=== PATIENT | female | born 1960 | race Caucasian/White ===

== ENCOUNTER 2022-09-12 06:00 | Emergency (ER) | payer OTHER, SELFPAY ==
[2022-09-12 06:10] VITALS: BP 138/101; PULSE 89; RESP 18; O2SAT 98; BMI 25.7
[2022-09-12 06:17] VITALS: TEMP 37.1
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
[2022-09-12] MEDS: IPRAT-ALBUT 0.5-2.5 MG/3 ML NEB 1 NEB IH ×2 (06:24→06:45)
[2022-09-12 07:21] VITALS: BP 115/74; PULSE 94; RESP 16; TEMP 36.5; O2SAT 98
--- NOTE | 2022-09-12 07:22 | ED.NURSE ---
Patient was discharged. No PIV present. Saturations 98% on room air. Feels like the back right throat is burning but able to tolerate ice chips. Encouraged patient to use lozenges at home. All questions answered and left via ambulatory.
== END 2022-09-12 07:15 | disposition home or self-care (01) ==
LOC: ED 06:45
PROVIDERS: Emergency Provider Family Medicine; PCP Physician Assistant Medical
DX: J68.3 Other acute and subacute respiratory conditions due to chemicals, gases, fumes and vapors (principal)
CPT/HCPCS: 94640; 99282; 99283

== ENCOUNTER 2025-04-02 10:58 | Emergency (ER) | payer OTHER, SELFPAY ==
[2025-04-02] VITALS (18 sets, daily range): BP systolic 142–152; BP diastolic 83–89; PULSE 51–78; RESP 12–22; TEMP 36.6; O2SAT 93–99; BMI 28.7
--- OUTSIDE RECORDS SUMMARY | 2025-04-02 11:00 | XMS_ITS | Clinical Summary ---
Author Organization [facility] Address [address] [place] [address] Care Team Providers Care Staff Cytotechnologist Name Role Phone Elsewhere, Pcp Primary Care Provider Unavailabl e Source Comments Patient records contain information from all sites at [facility]. For routine questions regarding patient records, call [phone] during business hours, M-F 8:00 AM - 5:00 PM Central Time. Record requests for emergency care only can be directed to [phone] at any time.[facility] Allergies Active Allergy Reactions Criticality Noted Date Comments Cetirizine Other (see comments) Medium 04/19/2010 Sleepiness. Ciprofloxacin Headache,Other (see comments) chills Medications * This document contains information received from the source organization and may not represent a complete record from that organization. albuterol 90 mcg/actuation inhaler Inhale 2 puffs as needed for shortness of breath. 2 Active UNABLE TO FIND Take 1 each by mouth 2 (two) times a day. Med Name: Plexus program Active cholecalcifero l (Vitamin D3) 250 mcg (10,000 Unit) capsule Take 250 mcg by mouth daily. Active zinc sulfate (ZINC-15 ORAL) Take 15 mg by mouth daily. Active quercetin 500 mg capsule Take 1 tablet by mouth daily. Active psyllium husk (METAMUCIL ORAL) Take 5 tablets by mouth daily. Active acetaminophen (TylenoL) 500 mg tablet Take 2 tablets (1,000 mg total) by mouth every 6 (six) hours as needed for pain. Alternate with ibuprofen every 3 hours. Do not exceed 4000 mg or 4 g in 24 hours. Active ibuprofen 200 mg tablet Take 3 tablets (600 mg total) by mouth every 6 (six) hours as needed for pain. Alternate with acetaminophen every 3 hours. Active oxyCODONE (Roxicodone) 5 mg immediate release tabletIndicati ons:Acute Pain Take 1 tablet (5 mg total) by mouth every 6 (six) hours as needed for pain Indication: Acute Pain. Not relieved by over the counter pain medications. 10 tablet 11/17/2024 6:19 PM CDT Active sennosides-doc usate sodium (Senokot-S) 8.6-50 mg per tablet Take 1 tablet by mouth 2 (two) times a day as needed for constipation. While on narcotics. Active Active Problems Problem Noted Date Diagnosed Date Bleeding Postmenopausal 10/14/2024 Leiomyoma (Fibroid) Uterus 10/14/2024 Social History Tobacco Use Types Packs/Day Years Used Date Smoking Tobacco: Former Cigarettes Q uit: 1993 Passive Smoke Exposure: Never Smokeless Tobacco: Never Tobacco Cessation:Counseling Given: Not Answered Alcohol Use Standard Drinks/Week Comments Not Currently 0 (1 standard drink = 0.6 oz pure alcohol) Use to drink socially, now its a rare thing [facility] Utilities Answer Date Recorded In the past 12 months has [place], oil, or water [place] threatened to shut off services in your home? No 10/18/2024 Hunger Vital Sign Answer Date Recorded Within the past 12 months, y ou worried that your food would run out before you got the money to buy more. Never true 10/19/19 25 Within the past 12 months, t he food you bought just didn't last and you didn't have money to get more. Never true 10/18/2024 PRAPARE - Transportation Answer Date Re corded In the past 12 months, has l ack of transportation kept you from medical appointments or from getting medications? No 10/08 In the past 12 months, has l ack of transportation kept you from meetings, work, or from getting things needed for daily living? No 10/18/2024 Housing Stability Answer Date Recorded What is your living situation today? I have a [facility] place to live 10/18/2024 Comments No Sex and Gender Information Value Date Recorded Sex Assigned at Female 10/18/2024 8:23 AM CDT Legal Sex Female 5:07 PM [employer]MSTONE [employer]TER Gender Identity Female 09/22/2024 2:05 PM [employer]MSTONE [employer]TER Sexual Orientation Straight 09/22/2024 2: 05 PM [employer]MSTONE [employer]TER Last Filed Vital Signs Vital Sign Reading Time Taken Comments Blood Pressure 120/60 11/17/2024 7:00 PM CDT Pulse 89 11/17/2024 7:00 PM CDT Temperature 36.5 C (97.7 F) 11/17/2024 6:00 PM CDT Respiratory Rate 16 11/17/2024 7:00 PM CDT Oxygen Saturation 94% 11/17/2024 7:00 PM CDT Inhaled Oxygen Concentration - - Weight 69 kg (152 lb 1.9 oz) 11/17/2024 11:13 AM CDT Height 156 cm (5' 1.42) 11/17/2024 11:13 AM CDT Body Mass Index 28.35 11/17/2024 11:13 AM CDT Plan of Treatment Health Maintenance Due Date Last Done Comments CT Colonography 1962 Cologuard 1962 Colonoscopy 1962 Colorectal Cancer Screening 1962 FIT 1962 Hepatitis C Screening 1962 Pneumococcal vaccine (50+ years) (1 of 1 - PCV) 2012 COVID-19 Vaccine ( season) 2024 Depression Screening (Annual PHQ-2) 08/10/2024 Influenza Vaccine (#1) 2025 5, 04/12/2015, 04/15/2013, Additional history exists Mammogram 05/10/2025 05/10/2024, 1008/2023, 03/16/2023, Additional history exists Fasting Glucose for Diabetes Screening 10/25/2027 10/24/2024, 03/25/2023, 04/05/2022, Additional history exists Lipid (Cholesterol) Screening 03/25/2028 03/25/2023, 12/23/2021, 11/19/2020, Additional history exists DTaP,Tdap,and Td Vaccines (8 - Td or Tdap) 05/30/2034 05/30/2024, 07/22/2012, 01/20/1968, Additional history exists Zoster Vaccines Completed 02/07/2021, 11/19/2020 IPV Vaccines Aged Out No longer eligi ble based on patient's age to complete this topic Medical Devices Implanted Type Area Medical Instrument Cable Fabricator Device Identifier Shelf Expiration Date Model / Serial / Lot Sacral Nerve Stimulator Sacral Nerve Stimulator Left: Back Procedures Procedure Name Priority Date/Time Associated Diagnosis Comments BASIC METABOLIC PANEL, S/P Routine 10/24/2024 4:35 PM CDT Bleeding Postmenopausal Leiomyoma (Fibroid) Uterus Preprocedural Lab Exam from Last 3 Months or Most Recently Relevant to Health Maintenance Results * (ABNORMAL) Basic Metabolic Panel (10/24/2024 4:35 PM CDT) Pathologist [facility] [place] Potassium, S 5.0 3.6 - 5.2 mmol/L 10/24/2024 6:23 PM CDT DTL Sodium, S 141 135 - 145 mmol/L 10/24/2024 6:23 PM CDT DTL Chloride, S 103 98 - 107 mmol/L 10/24/2024 6:23 PM CDT DTL Bicarbonate, S 28 22 - 29 mmol/L 10/24/2024 6:23 PM CDT DTL Anion Gap 10 7 - 15 10/24/2024 6:23 PM CDT DTL BUN (Blood Urea Nitrogen), S 22(H) 6 - 21 mg/dL 10/24/2024 6:23 PM CDT DTL Creatinine 0.82 0.59 - 1.04 mg/dL 10/24/2024 6:23 PM CDT DTL Estimated GFR (eGFR) 81 >=60 mL/min/BSA 10/24/2024 6:23 PM CDT DTL Comment: Estimated GFR calculated using the 2020 CKD_EPI creatinine equation. Calcium, Total, S 9.4 8.8 - 10.2 mg/dL 10/24/2024 6:23 PM CDT DTL Glucose, S 113 70 - 140 mg/dL 10/24/2024 6:23 PM CDT DTL Blood (Blood, Venous) 10/24/2024 4:35 PM CDT 10/24/2024 5:11 PM CDT us Crystal Shanks M.D. LAB BLOOD ADD-ON Final Re sult [facility] [address] [place] [address], [place] DTL [facility] [address] [place] [address] from Last 3 Months or Most Recently Relevant to Health Maintenance Insurance [employer] Advance Directives For more information, please contact: [phone] * Full Code (Latest Code Status on File) Date Activated Date Inactivated Comments 11/17/2024 6:06 PM 11/17/2024 11:13 PM Question Answer Comments Full Code: Discussed * Full Code Date Activated Date Inactivated Comments 11/17/2024 11:09 AM 11/17/2024 6:06 PM Question Answer Comments Full Code: Discussed Care Teams Staff Cytotechnologist Relationship Specialty Start Date End Date Elsewhere, Pcp PCP - General Health Education Teacher 09/27/24
--- OUTSIDE RECORDS SUMMARY | 2025-04-02 11:00 | XMS_ITS | Clinical Summary ---
Author Organization [facility] Address [address] [place] [id number] Care Team Providers Care Metal Temperer Name Role Phone Stacie Turner Primary Care Provider Allergies Active Allergy Reactions Criticality Noted Date Comments Cetirizine Sedation Medium 04/19/2010 Sleepiness. Ciprofloxacin Headache,Stomach Upset 09/01/2014 chills Medications acetaminophen (TYLENOL) 325 mg tabletIndicati ons:Post-op pain Take 3 Tablets (975 mg) by mouth every 6 hours. Max acetaminophen dose: 4000mg in 24 hrs. 100 Tablet 1 Active albuterol HFA (ProAir HFA) 90 mcg/actuation inhalerIndicat ions:Acute non-recurrent frontal sinusitis Inhale 1-2 Puffs by mouth every 6 hours if needed (cough). 1 Each 1 2 Active albuterol HFA (PRO-AIR; VENTOLIN; PROVENTIL) 90 mcg/actuation inhalerIndicat ions:Influenza A,Acute bronchitis due to other specified organisms Inhale 1-2 Puffs by mouth every 4 hours if needed for Shortness of Breath 1st choice or Wheezing 1st choice. 18 g 1 3 Active estradioL (VAGIFEM) 10 mcg tab vaginal tabletIndicati ons:Atrophic vaginitis INSERT 1 TABLET INTO VAGINA EVERY THURSDAY & THURSDAY 24 Tablet 1 4 Active Active Problems Problem Noted Date Diagnosed Date COVID-19 09/12/2022 OAB (overactive bladder) 12/17/2020 Mixed incontinence 12/17/2020 COVID-19 08/10/2019 Chronic fatigue 05/25/2018 Low vitamin D level 05/25/2018 Family history of thyroid disease 05/25/2018 Elevated fasting glucose 05/25/2018 Anxiety associated with depression 11/22/2013 Contact dermatitis and other eczema, due to unspecified cause 03/09/2012 Actinic cheilitis 07/04/2009 Family history of malignant neoplasm of gastrointestinal tract 04/06/2009 Overview (04/06/2009): Colonoscopy 03/2009 normal repeat in 5 years Pap smear for cervical cancer screening 08/10/19 03 Overview (03/10/2022): 2002 [place]IL 07/2003 [place] 10/2003 [place]:negative 10/10/19 NIL 12/23/21 NIL/HPV Negative Plan: Pap and HPV 12/2026 Immunizations Immunization Administration Dates Next Due AMB Influenza, IIV3 (Age >=3 years)(Flu Clinic Only) 05/30/2010 DTP 01/20/1968, 4,1962,1962,1962 Hepatitis A (Adult) 05/22/2008,11/04/2007 Influenza, IIV3 (Age 6-35 mos) 04/12/2015 Influenza, IIV3 (Age >=3 years) 04/15/20 13,07/22/2012,05/22/2008,2006 Influenza, IIV4 05/10/2015 Measles 11/05/1976,11/06/1964 Oral Polio Vaccine 01/20/1968, 4,1962,1962,1962 Td (Age >=7 Years) 06/17/2002,03/03/1983 Tdap 05/30/2024,07/22/2012 Zoster (Shingrix-RZV, recombinant) 02/07/2021, Family History Medical History Relation Name Comments Hypertension Brother 3 Ed Allergies Brother 4 Pardeep Diabetes Father Jon Heart Disease Father Jon h/o [place] at age 69 Hyperlipidemia Father Jon Hypertension Father Jon Cancer Mother Aileen uterine cancer; her sister also had it Diabetes Mother Aileen abnormal glucos e Hyperlipidemia Mother Aileen Hypertension Mother Aileen Cancer-breast Paternal Aunt Diana Cancer Sister 5 Collette rectal cancer a t age 47 Cancer-colon Sister 5 Collette Cancer-ovarian Sister 5 Collette Uterine cancer Sister 5 Collette Cancer Sister 6 Yu skin cancer Diabetes Sister 7 Ernestine Hypertension Sister 7 Ernestine Depression Sister 8 Shante and Collette Hypertension Sister 8 Shante and Colltete Allergies Sister 9 Shante, ernestine Relation Name Status Comments Brother 1 Alive Brother 2 Alive Brother 3 Ed Brother 4 Pardeep Father Jon Alive Mother Aileen Paternal Aunt Diana Sister 1 Alive Sister 2 Alive Sister 3 Alive Sister 4 Alive Sister 5 Collette Sister 6 Yu Sister 7 Ernestine Sister 8 Shante and Collette Sister 9 Shante, ernestine Alive Social History Tobacco Use Types Packs/Day Years Used Date Smoking Tobacco: Former Cigarettes Q uit: 08/10/1993 Smokeless Tobacco: Never Tobacco Cessation:Counseling Given: Yes Alcohol Use Standard Drinks/Week Comments Yes 0 (1 standard drink = 0.6 oz pure alcohol) occassional; couple drinks per month. PHQ-2 Answer Date Recorded PHQ-2 TOTAL SCORE 4 03/25/2023 Social Connections Answer Date Recorded Do you often feel lonely or isolated from those around you? 0 07/27/2024 Financial Resource Strain Answer Date R ecorded Difficulty of Paying Living Expenses 3 07/27/2024 Difficulty of Paying Living Expenses Not on file 07/27/2024 Food Insecurity Answer Date Recorded Do you worry your food will run out before you are able to buy more? 1 07/27/2024 Transportation Needs Answer Date Record ed Does lack of transportation keep you from medica l appointments? 1 07/27/2024 Does lack of transportation keep you from work, meetings or getting things that you need? 1 07/27/2024 Housing Stability Answer Date Recorded What is your housing situation today? 1 07/27/2024 Utilities Answer Date Recorded Do you have trouble paying f or utilities (for example, heat, electricity, water, phone)? 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 Not on file Not on file Not on f ile Student Not on file Not on file Not on file Not on file Not on file Not on file Not on file Obstetrics History Para Term AB IAB SAB Ectopic Multiple Livin g Live Births 2 2 2 2 Date Outcome GA Total Labor Labor/2nd/3rd Weight Sex Type Anes PTL Casandra A1 A5 Name Clin Term Vag Term VAGINAL HELIO Last Filed Vital Signs Vital Sign Reading Time Taken Comments Blood Pressure 115/70 12/02/2024 8:55 AM CDT Pulse 67 12/02/2024 8:55 AM CDT Temperature 36.5 C (97.7 F) 07/27/2024 11:30 AM CASTING AND CURING OPERATOR Respiratory Rate 16 12/19/2022 12:56 PM CDT Oxygen Saturation 99% 12/02/2024 8:55 AM CDT Inhaled Oxygen Concentration - - Weight 71.4 kg (157 lb 6.4 oz) 08/04/2024 7:32 A M CASTING AND CURING OPERATOR Height 154.9 cm (5' 1) 05/30/2024 1:27 PM CDT Body Mass Index 29.74 05/30/2024 1:27 PM CDT Plan of Treatment Health Maintenance Due Date Last Done Comments Pneumococcal series for age 50+ (1 of 1 - PCV) 2012 Depression screening for age 12+ 03/25/2024 03/25/2023, 06/07/2021, 06/07/2021, Additional history exists COVID-19 vaccine series ( - season) 2024 Influenza Vaccine (#1) 2025 5, 04/12/2015, 04/15/2013, Additional history exists Mammogram for age 45-75 05/10/2025 05/10/20 24, 03/16/2023, 12/20/2021, Additional history exists BMI (ht and wt on same day) for age 18+ 05/30/2025 05/30/2024, 03/25/2023, 12/19/2022, Additional history exists CT Colonography for age 45-75 04/08/2026 04/08/2021 (Verified in Care Everywhere or Patient Record) Pap test for age 21-65 12/23/2026 , 12/23/2021, 10/10/2019, Additional history exists Lipids for age 45-75 05/30/2029 05/30/2024, 03/25/2023, 12/23/2021, Additional history exists Tetanus booster 05/30/2034 05/30/2024, 07/10, 07/22/2012, Additional history exists RSV vaccine for adults or (1 - 1-dose 75+ series) 2037 Hepatitis C screening for age 18-79 Completed 07/22/2013 Zoster (shingles) series for age 50+ Completed 02/07/2021, 11/19/2020 HIV for age 15-65 Completed 06/05/2021 Hepatitis B series for 19+ Aged Out N o longer eligible based on patient's age to complete this topic Medical Devices Implanted Type Area Plumbing Manager Device Identifier Shelf Expiration Date Model / Serial / Lot Cable Perk Ext 2.16mm Interstim Lead - [id number] Implanted:Qty: 1 on 06/11/2021 by Candi Pepper DO at [facility] N/A: Sacrum [employer] Pain Therapy 08/12/2022 [id number] / / [id number] Lead Kit 2.16mm Spacing 28cm Length Interstim - [id number] Implanted:Qty: 1 on 06/11/2021 by Candi Pepper DO at [facility] N/A: Sacrum [employer] Pain Therapy 07/19/2022 [id number] / / [id number] Neurostimulator Rechargable Interstim Micro Surescan - [id number] Implanted:Qty: 1 on 06/18/2021 by Candi Pepper DO at [facility] Left: Flank [employer] Pain Therapy 01/04/2022 [id number] / [id number] / Procedures Procedure Name Priority Date/Time Associated Diagnosis Comments LIPID PANEL W REFLEX MEASURED LDL Routine 05/30/2024 2:19 PM CDT Screening cholesterol level XR MAMMO ELOY BILAT SCREEN Routine 05/10/2024 1:21 PM CDT Visit for screening mammogram HPV HIGH RISK Routine 12/23/2021 2:30 PM CDT Screening for cervical cancer ANTI HIV 1/2 Routine 06/05/2021 4:51 PM CDT Mild cognitive impairment ANTI HCV Routine 07/22/2013 8:05 AM CASTING AND CURING OPERATOR Need for hepatitis C screening test from Last 3 Months or Most Recently Relevant to Health Maintenance Results * (ABNORMAL) LIPID PANEL W REFLEX MEASURED LDL (05/30/2024 2:19 PM CDT) CHOLESTEROL, TOTAL 194 <200 mg/dL [facility] HDL CHOLESTEROL 50 > OR = 50 mg/dL [facility] TRIGLYCERIDES 92 <150 mg/dL [facility] LDL-CHOLESTEROL 124(H) mg/dL (calc) [facility] Comment: Reference range: <100 Desirable range <100 mg/dL for primary prevention; <70 mg/dL for patients with CHD or diabetic patients with > or = 2 CHD risk factors. LDL-C is now calculated using the Orlando-Ginette calculation, which is a validated novel method providing better accuracy than the Friedewald equation in the estimation of LDL-C. Orlando SS et al. HARRIS. 2013;310(19): 1548-5703 (http://education.[employer]er[employer]/faq/TFK634) CHOL/HDLC RATIO 3.9 <5.0 (calc) [facility] NON HDL CHOLESTEROL 144(H) <130 mg/dL (calc) [facility] Comment: For patients with diabetes plus 1 major ASCVD risk factor, treating to a non-HDL-C goal of <100 mg/dL (LDL-C of <70 mg/dL) is considered a therapeutic option. Blood BLOOD SPECIMEN / Unknown 05/30/2024 2:19 PM CDT 05/30/2024 2:20 PM CDT Narrative [facility] - 05/31/2024 11:30 AM CDT FASTING:NO FASTING: NO Stacie SHAFFER CHEMISTRY Final R esult [facility] [address] [place] [address], [facility] [address] [place] [address] * XR MAMMO ELOY BILAT SCREEN (05/10/2024 1:21 PM CDT) Anatomical Region Laterality Modality BREASTS, Breast Left, Breast Right Bilateral Mammography Impressions 05/10/2024 2:10 PM CDT There is no radiographic evidence for malignancy. Recommend annual mammograms. MAMMOGRAM ASSESSMENT: ACR 1 Negative PATIENTS: You will also receive a letter with your examination results in an easy to read format. If you have questions about your results, please contact your referring provider. Narrative 05/10/2024 2:10 PM CDT For Patients: As a result of the Century Cures Act, medical imaging exams and procedure reports are released immediately into your electronic medical record. You may view this report before your referring provider. If you have questions, please contact your health care provider. XR MAMMO ELOY BILAT SCREEN [[id number]] CLINICAL HISTORY: This is an asymptomatic 63 y.o. patient. INDICATION FOR EXAM: Mammogram Screening. TECHNIQUE: CC & MLO views were obtained. This study was evaluated with the assistance of Computer-Aided Detection. Breast Tomosynthesis was used in interpretation. COMPARISON FILM: Yes 03/16/23 [facility] 12/20/21 [facility] FINDINGS: There are scattered areas of fibroglandular density. There are no dominant masses, suspicious micro calcifications or areas of architectural distortion. Stacie SHAFFER MAMMO Final R esult * HPV HIGH RISK (12/23/2021 2:30 PM CDT) TYPE 16 Negative Negative 12/25/2021 11:31 AM CDT [facility] TYPE 18 Negative Negative 12/25/2021 11:31 AM CDT [facility] OTHER HIGH RISK TYPES Negative Negative 12/25/2021 11:31 AM CDT [facility] Other (Cervical) Non-Blood / Unknown 12/23/2021 2:30 PM CDT 12/24/2021 7:55 AM CDT Narrative [facility] - 12/25/2021 11:31 AM CDT HPV types 16, 18, 31, 33, 35, 39, 45, 51, 52, 56, 58, 59, 66 and 68 DNA were undetectable or below the pre-set threshold. Methodology: Matthew Raman 4800 HPV Test us Stacie SHAFFER MICROBIOLOGY Final R esult Performing Organization Address City/[facility]/ZIP Co de Phone Number [facility] [address] [place] [address], [place] * ANTI HIV 1/2 [34861.0] (06/05/2021 4:51 PM CDT) HIV-1/HIV-2 ANTIBODY Non-Reacti ve Non-Reacti ve 06/06/2021 2:36 PM CDT [facility] Comment:HIV-1 p24 and HIV-1/ HIV-2 Ab not detected. Blood BLOOD SPECIMEN / Unknown Venipuncture / Unknown 06/05/2021 4:51 PM CDT 06/05/2021 4:51 PM CDT Jean Carlos Sandoval MD SEND OUTS Final Re sult [facility] [address] [place] [address], [place] * ANTI HCV (07/22/2013 8:05 AM CASTING AND CURING OPERATOR) ANTI HCV Non-reacti ve [facility] Blood specimen (specimen) BLOOD SPECIMEN / Unknown 07/22/2013 8:05 AM CASTING AND CURING OPERATOR 07/22/2013 7:59 AM CASTING AND CURING OPERATOR Raji Floyd MD SEND OUTS Final Re sult [facility] INTERNAL ZIP [phone] [place] [address] from Last 3 Months or Most Recently Relevant to Health Maintenance Insurance [facility] NON-KS-ITS TRAVELERS TRAVELERS TRAVELERS TRAVELERS Advance Directives * Full Code (Latest Code Status on File) Date Activated Date Inactivated Comments 06/18/2021 12:05 PM 06/18/2021 5:44 PM Question Answer Comments Code Status Discussion: Reviewed Preferences * Full Code Date Activated Date Inactivated Comments 06/11/2021 12:47 PM 06/11/2021 6:47 PM Question Answer Comments Code Status Discussion: Not Discussed Care Teams Metal Temperer Relationship Specialty Start Date End Date Stacie Turner PA [address] [place] [address] PCP - General Physician Land Development Project Manager 10/08/18
--- NOTE | 2025-04-02 11:19 | ED_ITS ---
HPI - General Adult General Date Seen: 04/02/25 Chief complaint: Chest Pain Stated complaint: chest pain Time Seen by Provider: 04/02/25 11:04 History of Present Illness HPI narrative: Patient is a 64-year-old here with her for evaluation of chest pain. S he is generally healthy, does not take any medications, does not smoke or drink. She had 2 episodes of sharp pleuritic chest pain in the center of her chest this morning. She says she got up around 6 and had breakfast which was opened male, and then around 9:00 a.m. she had 1 episode followed a little while later by another episode, both lasting around 5 minutes. She has had some nausea all week and a little bit of lightheadedness which she attributes to the fact that she has been suffering from a cold. She has not had any fevers. She has not had abdominal pain. She has not had vomiting or diarrhea, black or bloody stools. No recent travel or immobility, no lower extremity swelling or pain. Currently pain-free. Related Data Home Medications ?Medication ?Instructions ?Recorded ?Confirmed No Known Home Medications 08/16/2403/10 Allergies Allergy/AdvReac Type Severity Reaction Status Date / Time ciprofloxacin Allergy Gastrointestinal Verified 03/21/25 13:52 Upset cetirizine AdvReac sedation Verified 03/21/25 13:52 Review of Systems Status of ROS: Reports: 10 or more systems reviewed and unremarkable except as noted in History and below [facility] Medical History MERLY (obstructive sleep apnea) ?G47.33 - Obstructive sleep apnea (adult) (pediatric) (ICD-10) OAB (overactive bladder) ?N32.81 - Overactive bladder (ICD-10) Low vitamin D level ?R79.89 - Other specified abnormal findings of blood chemistry (ICD-10) IBS (irritable bowel syndrome) ?K58.9 - Irritable bowel syndrome, unspecified (ICD-10) Contact dermatitis ?L25.9 - Unspecified contact dermatitis, unspecified cause (ICD-10) Anxiety ?F41.9 - Anxiety disorder, unspecified (ICD-10) Actinic cheilitis ?L56.8 - Other specified acute skin changes due to ultraviolet radiation (ICD-10) Surgical History History of hysterectomy (11/17/24) ?Z90.710 - Acquired absence of both cervix and uterus (ICD-10) S/P abdominoplasty ?Z98.890 - Other specified postprocedural states (ICD-10) History of arthroscopy of right shoulder (11/14/98) ?Z98.890 - Other specified postprocedural states (ICD-10) S/P foot surgery, left (04/18/92) ?Z98.890 - Other specified postprocedural states (ICD-10) History of tonsillectomy ?Z90.89 - Acquired absence of other organs (ICD-10) Family History Mother Diabetes Father Diabetes Sister Diabetes Uterine cancer Rectal cancer Skin cancer Social History Narrative: former smoker-1993 Smoking Status: Former smoker What tobacco products do you use: cigarettes Smoking quit date/years: >15 years ago Do you use any of these nicotine containing products: None Second hand tobacco smoke exposure: No Exam Narrative: Exam Narrative: Vital signs reviewed In general, alert, nontoxic but H woman. Breathing easily. Head: Normocephalic, atraumatic. Eyes: Sclera clear. Pupils equal and reactive. ENT: Mucous membranes moist. Neck: Supple without adenopathy. Heart: Regular rate and rhythm without murmur. Lungs: Clear. No increased work of breathing, crackles or wheezes. Abdomen: Soft, nontender to palpation. Specifically no epigastric or right upper quadrant tenderness. Negative Evans's. Extremities: Well perfused, pulses intact. No significant edema. No calf tenderness. Neurologic: Alert, conversant. Speech fluent, face symmetric. Moves all extremities equally. Skin: Warm, dry well perfused. Affect: Normal. Const: Vital Signs, click to edit/add: Vital Signs - 24 hr 04/02/25 11:04 04/02/25 11:18 Temperature 97.8 F Pulse Rate [Pulse Oximeter] 78 Respiratory Rate 18 Blood Pressure [Ri ght Upper Arm] 142/89 H Pulse Oximetry 98 99 Oxygen Delivery Me thod Room Air Course Course ED Course: Patient presents with 2 episodes of sharp pleuritic chest pain in the presence of cold symptoms for the past week. Diagnostic considerations would include pneumonia, pneumothorax, pleural effusion, acute coronary syndrome or angina, pulmonary embolism, biliary colic among others. She is pain-free right now. An EKG was done which shows a normal sinus rhythm, ventricular rate of 61. No acute ST segment changes, unremarkable T-waves, poor R-wave progression. No previous EKG available for comparison. Overall workup so far is reassuring. EKG is unremarkable for anything acute, troponin is 0, D-dimer is negative. Chest x-ray by my review shows no pneumothorax, infiltrate, pleural effusion or other abnormalities. Read as negative by Radiology. Due to her age will get a 2nd troponin at the 2 hour marco, but overall I would suspect her symptoms are related to pleurisy in the setting of an upper respiratory infection. Biliary colic felt to be less likely given the pleuritic nature and brief duration of her pain. COVID test is still pending at this time. Assuming 2nd troponin is negative, would recommend a couple of days of anti-inflammatories, return for severe worsening symptoms such as fever, significant shortness of breath, severe uncontrolled pain, and primary care follow-up if symptoms continue. COVID and repeat troponin negative. Plan as outlined above. Vital Signs Vital signs: Initial Vital Signs Temperature 97.8 F 04/02/25 11:04 Temperature Source Temporal Artery Scan 04/02/25 11:04 Pulse Rate 78 04/02/25 11:04 Respiratory Rate 18 04/02/25 11:04 Blood Pressure 142/89 H 04/02/25 11:04 Blood Pressure Mean 106 H 04/02/25 11:04 Pulse Oximetry 98 04/02/25 11:04 Oxygen Delivery Method Room Air 04/02/25 11:04 Vital Signs Temperature 97.8 F 04/02/25 11:04 Pulse Rate 78 04/02/25 11:04 Respiratory Rate 18 04/02/25 11:04 Blood Pressure 142/89 H 04/02/25 11:04 Pulse Oximetry 98 04/02/25 11:04 Oxygen Delivery Method Room Air 04/02/25 11:04 Temperature 97.8 F 04/02/25 11:04 Pulse Rate 78 04/02/25 11:04 Respiratory Rate 18 04/02/25 11:04 Blood Pressure 142/89 H 04/02/25 11:04 Pulse Oximetry 99 04/02/25 11:18 Oxygen Delivery Method Room Air 04/02/25 11:04 Medical Decision Making Lab Data Lab results reviewed: Yes I reviewed the patient's lab results Labs: Lab Results 04/02/25 04/02/25 04/02/25 Range/Units 11:19 11:30 13:40 WBC 3.00 L (4.50-11.00) K/uL RBC 5.00 (4.00-5.20) m/uL Hgb 14.1 (12.0-16.0) gm/dL Hct 42.2 (33.0-51.0) % MCV 84 (80-100) fL MCH 28 (26-34) pg MCHC 33 (32-36) gm/dL RDW Coeff of Erika 12.4 (11.5-15.5) % Plt Count 189 (140-440) K/uL Neut % (Auto) 40.4 L (42.0-72.0) % Lymph % (Auto) 44.7 H (20-44) % Toole % (Auto) 10.0 (0.0-11.0) % Eos % (Auto) 4.3 (0.0-7.0) % Baso % (Auto) 0.3 (0.0-3.0) % Neut # (Auto) 1.20 L (1.7-7.0) K/uL Lymph # (Auto) 1.30 (0.90-2.90) K/uL Toole # (Auto) 0.30 (0.00-0.90) K/UL Eos # (Auto) 0.10 (0.00-0.50) K/uL Baso # (Auto) 0.00 (0.00-0.30) K/uL Abs Immat Gran (auto) 0.00 (0.00-0.30) K/uL Imm/Tot Granulo (auto) 0.3 % D-Dimer Quant (PE/DVT) 0.35 (0.00-0.50) ug/ml Sodium 137 (135-149) mmol/L Potassium 4.1 (3.6-5.1) mmol/L Chloride 101 (96-114) mmol/L Carbon Dioxide 33 H (20-32) mmol/L Anion Gap 3 L (7-15) mEq/L BUN 19 (7-30) mg/dL Creatinine 0.6 (0.5-1.5) mg/dL Estimated Creat Clear 44.02 Estimated GFR 101 ml/min Glucose 154 H (60-115) mg/dL Calcium 9.3 (8.4-10.6) mg/dL Total Bilirubin 0.3 (0.1-1.5) mg/dL Direct Bilirubin 0.2 (0.0-0.5) mg/dL AST 32 (12-35) U/L ALT 33 (4-35) U/L Alkaline Phosphatase 93 (40-150) U/L C-Reactive Protein < 0.5 L (0.5-1.0) mg/dL Total Protein 7.1 (6.0-8.3) g/dL Albumin 4.1 (3.3-5.0) g/dL Lipase 94 (23-300) U/L SARS-CoV-2 (PCR) Negative SARS-CoV-2 (Negative) Influenza Type A (PCR) Negative PCR FLU A (Negative) Influenza Type B (PCR) Negative PCR FLU B (Negative) RSV (PCR) Negative PCR RSV (Negative) POC Troponin I 0.00 L 0.00 L (0.01-0.04) ng/ml Imaging Data Chest x-ray: Attestation: I have reviewed the pertinent imaging results. Radiologist's impression: Patient: Vaishali Brunner MR#: [id number] : 1960 Acct:[id number] Loc: ED Service Date: 04/02/[address]: Ordering Physician: Candi Moran M.D. Date of Service: 04/02/25 Procedure(s): XR chest 1V portable Accession Number(s): [id number] cc: Candi Moran M.D.; Stacie Turner PA-C~ For Patients: As a result of the Century Cures Act, medical imaging exams and procedure reports are released immediately into your electronic medical record. You may view this report before your referring provider. If you have questions, please contact your health care provider. INDICATION: Chest pain. TECHNIQUE: Chest 1 views. COMPARISON: 05/07/2021. FINDINGS: Cardiovasculature and mediastinum: Heart size is normal. Unremarkable mediastinum. Lungs and pleural spaces: Lungs are clear. No sign of infiltrate or mass. No sign of pleural effusion. No pneumothorax. Bones and soft tissues: No significant findings. IMPRESSION: Negative chest. Dictated by Mike Hartmann MD @ 04/02/2025 11:55:00 AM Discharge Plan Discharge Clinical Impression: Pleuritic chest pain, Upper respiratory infection Patient Disposition: Home, Self-Care Condition: Stable Instructions: Pleurisy (DC) Additional Instructions: Overall, your symptoms are not strongly suggestive of heart related pain. Your workup here is reassuring, there is no evidence of heart attack, pneumonia, heart failure, blood clot or other serious problem. Symptoms are most likely due to some irritation of the lining of your lungs/chest wall. It would be reasonable to use a nonsteroidal anti-inflammatory such as ibuprofen 2 to 3 times a day with food for the next couple of days. If you have new symptoms such as fevers, severe pain, fainting, shortness of breath or other worsening, return to the ER. Otherwise, follow-up with primary care for ongoing symptoms. Prescriptions: No Action No Known Home Medications Follow Up/Referrals: Stacie Turner PA-C [Primary Care Provider, Family Practice] Stand Alone Forms: [employer] Info Instructions
[2025-04-02 11:44] LABS: Troponin, Point-of-Care* 0.00 ng/ml (0.01-0.04)
[2025-04-02 11:52] LABS: Albumin* 4.1 g/dL (3.3-5.0); Chloride* 101 mmol/L (96-114); Hematocrit 42.2 % (33.0-51.0); Hemoglobin* 14.1 gm/dL (12.0-16.0); Immature Granulocytes Pct Auto 0.3 %; Mean Corpuscular HGB Conc 33 gm/dL (32-36); Mean Corpuscular Hemoglobin 28 pg (26-34); Mean Corpuscular Volume 84 fL (80-100); RDW Coefficient of Variation % 12.4 % (11.5-15.5); Red Blood Count 5.00 m/uL (4.00-5.20); White Blood Count* 3.00 K/uL (4.50-11.00)
[2025-04-02 11:53] LABS: Potassium* 4.1 mmol/L (3.6-5.1); Sodium* 137 mmol/L (135-149)
[2025-04-02 11:55] LABS: Alanine Aminotransferase* 33 U/L (4-35); Alkaline Phosphatase* 93 U/L (40-150); Anion Gap 3 mEq/L (7-15); Aspartate Amino Transferase* 32 U/L (12-35); Bilirubin Direct* 0.2 mg/dL (0.0-0.5); Bilirubin Total* 0.3 mg/dL (0.1-1.5); Blood Urea Nitrogen* 19 mg/dL (7-30); Carbon Dioxide* 33 mmol/L (20-32); Creatinine* 0.6 mg/dL (0.5-1.5); Est. Creatinine Clearance* 44.02; Estimated Glomerular Filt Rate 101 ml/min; Total Protein* 7.1 g/dL (6.0-8.3)
[2025-04-02 11:56] LABS: Calcium* 9.3 mg/dL (8.4-10.6); Glucose* 154 mg/dL (60-115)
[2025-04-02 11:59] LABS: Immature Granulocytes Abs Auto 0.00 K/uL (0.00-0.30); Lymphocytes Absolute Auto 1.30 K/uL (0.90-2.90); Slide Review Reflex No
[2025-04-02 12:02] LABS: D Dimer Quantitative* 0.35 ug/ml (0.00-0.50)
[2025-04-02 12:45] LABS: PCR FLU A Negative PCR FLU A (Negative); PCR FLU B Negative PCR FLU B (Negative); PCR RSV Negative PCR RSV (Negative); SARS PCR* Negative SARS-CoV-2 (Negative)
[2025-04-02 13:51] LABS: Troponin, Point-of-Care* 0.00 ng/ml (0.01-0.04)
== END 2025-04-02 14:10 | disposition home or self-care (01) ==
PROVIDERS: Emergency Provider Emergency Medicine; PCP Physician Assistant Medical
DX: R09.1 Pleurisy (principal); J06.9 Acute upper respiratory infection, unspecified
CPT/HCPCS: 36415; 71045; 80048; 80076; 83690; 84484; 85025; 85379; 86140; 87631; 93005; 94761; 99284; 99285

== ENCOUNTER 2025-04-12 18:59 | Emergency (ER) | payer OTHER, SELFPAY ==
--- OUTSIDE RECORDS SUMMARY | 2022-09-30 05:39 | XMS_ITS | Continuity of Care Document ---
Author Organization [facility] Address [address] [address] [place] [address] Phone Care Team Providers Care Lean Leader Name Role Phone Issac Boyer MD, Les Kiser Unavailabl e Advance Directives Directive Yes / No Effective Date File Name No Information Encounters Encounter Description Practice Location Reason(s) For Visit Diagnoses Date Provider Providers Copied on Encounter [facility], [address] [address], [place], [place], [id number], [place] tel:[phone] [facility] No Information Issac Saldana. [address] [facility], [facility] [address], [place], [place], [id number], [place]. tel:[phone] Family History Family Member Type Diagnosis Age At Onset No Information Payers Payer name Insurance type Covered constitution party ID Authoriza tion(s) No Information Social History Type Description Quantity Date Captured Comments Sex Female Smoking Status No Information Chief Complaint And Reason For Visit No Information Reason For Referral Reason For Referral No Information History Of Present Illness Encounter Date Complaint History Of Prese nt Illness No Information Functional Status Date Functional Assessmen t No Information Instructions Date Instruction Additional Infor mation No Information Assessments Type Assessment Date No Information Patient Care Teams Name Effective Dates (start - stop) Status Members No Information
--- OUTSIDE RECORDS SUMMARY | 2022-09-30 05:39 | XMS_ITS | Continuity of Care Document ---
Author Organization [facility] Address [address] [address] [place] [address] Phone Care Team Providers Care Jewel Diameter Gauger Name Role Phone Issac Boyer MD, Les Kiser Unavailabl e Advance Directives Directive Yes / No Effective Date File Name No Information Encounters Encounter Description Practice Location Reason(s) For Visit Diagnoses Date Provider Providers Copied on Encounter [facility], [address] [address], [place], [place], [id number], [place] tel:[phone] [facility] No Information Issac Saldana. [address] [facility], [facility] [address], [place], [place], [id number], [place]. tel:[phone] Family History Family Member Type Diagnosis Age At Onset No Information Payers Payer name Insurance type Covered alliance party ID Authoriza tion(s) No Information Social [...]
--- OUTSIDE RECORDS SUMMARY | 2025-04-12 19:00 | XMS_ITS | Clinical Summary ---
Author Organization [facility] Address [address] [place] [id number] Care Team Providers Care Patternmaker Hand Name Role Phone Stacie Turner Primary Care [...] & THURSDAY 24 Tablet 1 4 Active amoxicillin-cl avulanate (AUGMENTIN) 875-125 mg tabletIndicati ons:Acute non-recurrent frontal sinusitis Take 1 Tablet by mouth two times daily with meals for 5 days. 10 Tablet 5 025 Active Problems Problem Noted Date Diagnosed Date [...] 08/10/19 03 Overview (03/10/2022): 2002 LSIL 07/2003 [place] 10/2003 [place]:negative 10/10/19 NIL 12/23/21 NIL/HPV Negative Plan: Pap and HPV 12/2026 Encounters Date Type Department Care Team Description 04/04/2025 8:10 AM CDT Office Visit [facility] [address] [place] [address] Natty Castillo MD ER Follow up (Chest pain has improved /congestion and sinus symptoms are not improving ) 04/04/2025 Travel 04/02/2025 Orders Only [facility] Scanner 1 scan: (1-Ord) [facility], CHEST 1V, 04/02/2025 from Last 3 Months Immunizations Immunization Administration Dates Next Due AMB Influenza, IIV3 (Age >=3 years)(Flu Clinic Only) 05/30/2010 DTP 01/20/1968, 4,1962,1962,1962 Hepatitis A (Adult) 05/22/2008,11/04/2007 Influenza, IIV3 (Age 6-35 mos) 04/12/2015 Influenza, IIV3 (Age >=3 years) 04/15/20 13,07/22/2012,05/22/2008,2006 Influenza, IIV4 05/10/2015 Measles 11/05/1976,11/06/1964 Oral Polio Vaccine 01/20/1968,,1962,1962,1962 Td (Age >=7 Years) 06/17/2002,03/03/1983 Tdap 05/30/2024,07/22/2012 Zoster (Shingrix-RZV, recombinant) 02/07/2021, Family History Medical History Relation Name Comments Hypertension Brother 3 Ed Allergies Brother 4 Pardeep Diabetes Father Jon Heart Disease Father Jon h[facility]o [facility] at age 69 Hyperlipidemia Father Jon Hypertension [...] and Collette Hypertension Sister 8 Shante and Collette Allergies Sister 9 Shante, ernestine Relation Name [...] Sex Assigned at Female 08/29/2020 7:17 AM HAZ TECH Legal Sex Female 6:31 AM HAZ TECH Gender Identity Female 08/29/2020 7:17 AM HAZ TECH Sexual Orientation Straight 08/29/2020 7: 17 AM HAZ TECH 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 Not on file Not on file Not [...] Sign Reading Time Taken Comments Blood Pressure 124/74 04/04/2025 8:31 AM CDT Pulse 74 04/04/2025 8:10 AM CDT Temperature 36.5 C (97.7 F) 07/27/2024 11:30 AM HAZ TECH Respiratory Rate 16 12/19/2022 12:56 PM CDT Oxygen Saturation 98% 04/04/2025 8:10 AM CDT Inhaled Oxygen Concentration - - Weight 71.4 kg (157 lb 6.4 oz) 08/04/2024 7:32 A M HAZ TECH Height 154.9 cm (5' 1) 05/30/2024 1:27 PM CDT Body Mass Index 29.74 05/30/2024 1:27 PM CDT Plan of Treatment Health Maintenance Due Date Last Done Comments Pneumococcal series for age 50+ (1 of 1 - PCV) 2012 Depression screening for age 12+ 03/25/2024 03/25/2023, 06/07/2021, 06/07/2021, Additional history exists COVID-19 vaccine series ( season) 2024 Influenza Vaccine (#1) 2025 5, [...] this topic Medical Devices Implanted Type Area Tableau Report Developer Device Identifier Shelf Expiration Date Model / Serial / Lot Cable Perk Ext 2.16mm Interstim Lead - [id number] Implanted:Qty: 1 on 06/11/2021 by Candi Pepper DO at [facility] N/A: Sacrum [employer] Pain Therapy 08/12/2022 [id number] / / [id number] Lead Kit 2.16mm Spacing 28cm Length Interstim - [id number] Implanted:Qty: 1 on 06/11/2021 by Candi Pepper DO at [facility] N/A: Sacrum [employer] Pain Therapy 07/19/2022 [id number] / / [id number] Neurostimulator Rechargable Interstim Micro Surescan - [id number] Implanted:Qty: 1 on 06/18/2021 by Candi Pepper DO at [facility] Left: Flank [employer] Pain Therapy 01/04/2022 [id number] / [id number] / Procedures Procedure Name Priority Date/Time Associated Diagnosis Comments SCAN-RADIOLOGY REPORT 04/02/2025 12:00 AM CDT LIPID PANEL W REFLEX MEASURED LDL Routine 05/30/2024 2:19 PM CDT Screening cholesterol level XR MAMMO ELOY BILAT SCREEN Routine 05/10/2024 1:21 PM CDT Visit for screening mammogram HPV HIGH RISK Routine 12/23/2021 2:30 PM CDT Screening for cervical cancer ANTI HIV 1/2 Routine 06/05/2021 4:51 PM CDT Mild cognitive impairment ANTI HCV Routine 07/22/2013 8:05 AM HAZ TECH Need for hepatitis C screening test from Last 3 Months or Most Recently Relevant to Health Maintenance Results * SCAN-RADIOLOGY REPORT (04/02/2025 12:00 AM CDT) Anatomical Region Laterality Modality Other us Scanner OTHER Final Result * (ABNORMAL) LIPID PANEL W REFLEX MEASURED [...] factors. LDL-C is now calculated using the Wilma calculation, which is a validated novel method providing better accuracy than the Friedewald equation in the estimation of LDL-C. [place] BRAVO et al. HARRIS. 2013;310(19): 4391-9206 (http://education.Skritter/faq/XBD644) CHOL/HDLC RATIO 3.9 <5.0 (calc) [facility] NON HDL CHOLESTEROL 144(H) <130 mg/dL (calc) [facility] Comment: For patients with diabetes plus 1 major ASCVD risk factor, treating to a non-HDL-C goal of <100 mg/dL (LDL-C of <70 mg/dL) is considered a therapeutic option. Blood BLOOD SPECIMEN / Unknown 05/30/2024 2:19 PM CDT 05/30/2024 2:20 PM CDT Narrative [facility] - 05/31/2024 11:30 AM CDT FASTING:NO FASTING: NO Stacie SHAFFER CHEMISTRY Final R esult [facility] [address] [place] [address], [facility] [place] [address] [place] [address] * XR MAMMO ELOY BILAT SCREEN (05/10/2024 [...] For Patients: As a result of the 21st Century Cures Act, medical imaging exams and procedure reports are released immediately into your electronic medical record. You may view this report before your referring provider. If you have questions, please contact your health care provider. XR MAMMO ELOY BILAT SCREEN [[id number]] CLINICAL HISTORY: This is an asymptomatic 63 y.o. patient. INDICATION FOR EXAM: Mammogram Screening. TECHNIQUE: CC & MLO views were obtained. This study was evaluated with the assistance of Computer-Aided Detection. Breast Tomosynthesis was used in interpretation. COMPARISON FILM: Yes 03/16/23 [facility] 12/20/21 [facility] FINDINGS: There are scattered areas of fibroglandular density. There are no dominant masses, suspicious micro calcifications or areas of architectural distortion. Stacie SHAFFER MAMMO Final R esult * HPV HIGH RISK (12/23/2021 2:30 PM CDT) TYPE 16 Negative Negative 12/25/2021 11:31 AM CDT [facility] TYPE 18 Negative Negative 12/25/2021 11:31 AM CDT [facility] OTHER HIGH RISK TYPES Negative Negative 12/25/2021 11:31 AM CDT [facility] Other (Cervical) Non-Blood / Unknown 12/23/2021 2:30 PM CDT 12/24/2021 7:55 AM CDT Narrative [facility] - 12/25/2021 11:31 AM CDT HPV types 16, 18, 31, 33, 35, 39, 45, 51, 52, 56, 58, 59, 66 and 68 DNA were undetectable or below the pre-set threshold. Methodology: Matthew Raman 4800 HPV Test Stacie SHAFFER MICROBIOLOGY Final R esult [facility] [address] [place] [address], * ANTI HIV 1/2 [58700.0] (06/05/2021 4:51 PM CDT) HIV-1/HIV-2 ANTIBODY Non-Reacti ve Non-Reacti ve 06/06/2021 2:36 PM CDT [facility] Comment:HIV-1 p24 and HIV-1/ HIV-2 Ab not detected. Blood BLOOD SPECIMEN / Unknown Venipuncture / Unknown 06/05/2021 4:51 PM CDT 06/05/2021 4:51 PM CDT Jean Carlos Sandoval MD SEND OUTS Final Re sult [facility] [address] [place] [address], [place] * ANTI HCV (07/22/2013 8:05 AM HAZ TECH) Pathologist [facility] ANTI HCV Non-reacti ve [facility] Blood specimen (specimen) BLOOD SPECIMEN / Unknown 07/22/2013 8:05 AM HAZ TECH 07/22/2013 7:59 AM HAZ TECH us Raji Floyd MD SEND OUTS Final Re sult [facility] INTERNAL ZIP [id number] [place] [address] from Last 3 Months or Most Recently Relevant to Health Maintenance Insurance [employer] [id number] TRAVELERS TRAVELERS TRAVELERS TRAVELERS Advance Directives * Full Code (Latest Code Status on File) Date Activated Date Inactivated Comments 06/18/2021 12:05 PM 06/18/2021 5:44 PM Question Answer Comments Code Status Discussion: Reviewed Preferences * Full Code Date Activated Date Inactivated Comments 06/11/2021 12:47 PM 06/11/2021 6:47 PM Question Answer Comments Code Status Discussion: Not Discussed Care Teams Patternmaker Hand Relationship Specialty Start Date End Date Stacie [place] [address] PCP - General Physician Filtration Plant Operator 10/08/18
--- OUTSIDE RECORDS SUMMARY | 2025-04-12 19:01 | XMS_ITS | Clinical Summary ---
Author Organization [facility] Address [address] [place] [address] Care Team Providers Care In Home Sales Consultant Name Role Phone Elsewhere, Pcp Primary Care Provider Unavailabl e Source Comments Patient records contain information from all sites at [facility]. For routine questions regarding patient records, call [phone] during business hours, M-F 8:00 AM - 5:00 PM Central Time. Record requests for emergency care only can be directed to [phone] at any time.[facility] Allergies Active Allergy Reactions Criticality Noted [...] drink socially, now its a rare thing [facility] Utilities Answer Date Recorded In the past 12 months has [employer], oil, or water [employer] threatened to shut off services in your [...] your living situation today? I have a [facility] place to live 10/18/2024 Comments No Sex and Gender Information Value Date Recorded Sex Assigned at Female 10/18/2024 8:23 AM CDT Legal Sex Female 5:07 PM NURSERY WORKER Gender Identity Female 09/22/2024 2:05 PM NURSERY WORKER Sexual Orientation Straight 09/22/2024 2: 05 PM NURSERY WORKER Last Filed Vital Signs Vital Sign Reading [...] this topic Medical Devices Implanted Type Area Operations Intelligence Device Identifier Shelf Expiration Date Model / [...] Metabolic Panel (10/24/2024 4:35 PM CDT) Pathologist [facility] Potassium, S 5.0 3.6 - 5.2 mmol/L [...] M.D. LAB BLOOD ADD-ON Final Re sult [facility] [address] [place] [address], [place] DTL [facility] [address] [place] [address] from Last 3 Months or Most Recently Relevant to Health Maintenance Insurance [facility] Advance Directives For more information, please contact: [phone] * Full Code (Latest Code Status on File) Date Activated Date Inactivated Comments 11/17/2024 6:06 PM 11/17/2024 11:13 PM Question Answer Comments Full Code: Discussed * Full Code Date Activated Date Inactivated Comments 11/17/2024 11:09 AM 11/17/2024 6:06 PM Question Answer Comments Full Code: Discussed Care Teams In Home Sales Consultant Relationship Specialty Start Date End Date Elsewhere, Pcp PCP - General Glass Furnace Tender 09/27/24
[2025-04-12 19:02] VITALS: BP 138/89; PULSE 75; RESP 18; TEMP 36.6; O2SAT 97; BMI 29.9
--- NOTE | 2025-04-12 19:18 | CRLHL7_ITS ---
For Patients: As a result of the Century Cures Act, medical imaging exams and procedure reports are released immediately into your electronic medical record. You may view this report before your referring provider. If you have questions, please contact your health care provider. Indication: Right lower quadrant pain Technique: CT abdomen/pelvis with IV contrast, utilizing 78 mL Isovue 370 Comparison: None Findings: Lower thorax: Trace dependent and basilar atelectasis. Abdomen/pelvis: There are few subcentimeter low-density cystic like lesions in the liver, incompletely characterized on this exam, but likely small benign cysts. No suspicious hepatic lesions. The gallbladder and biliary system are unremarkable. The spleen, pancreas, adrenal glands, left kidney, left ureter, and bladder are unremarkable. There is mild right-sided hydroureteronephrosis. The distal right ureter is difficult to accurately follow; however, there is a small 2 millimeter calcification near the expected region of the distal right ureter, which may represent a small obstructing stone (series number 2, image 120), which would account for the mild right-sided hydronephrosis. Status post hysterectomy. No suspicious adnexal lesions. No evidence of bowel obstruction or inflammation. The appendix is normal. No free air, free fluid, or abscess. No abdominopelvic lymphadenopathy. Minimal calcific atherosclerosis of the aortoiliac system. Soft tissue/musculoskeletal: No acute abnormality. Left sacral nerve stimulator. The bones are unremarkable for the patient`s age. Impression: 1. Suspected 2 millimeter obstructing stone in the distal right ureter causing mild right-sided hydroureteronephrosis. 2. Additional incidental findings as detailed above. Please note that all CT scans at this facility use dose modulation, iterative reconstruction, and/or weight-based dosing when appropriate to reduce radiation dose to as low as reasonably achievable. Dictated by Laz Bates MD @ 04/12/2025 8:38:57 PM (Electronically Signed)
[2025-04-12 19:30] LABS: Appearance Urine Clear (Clear)
[2025-04-12 19:34] LABS: Hematocrit* 40.5 % (33.0-51.0); Hemoglobin* 13.5 gm/dL (12.0-16.0); Immature Granulocytes Abs Auto 0.01 K/uL (0.00-0.30); Immature Granulocytes Pct Auto 0.2 %; Lymphocytes Absolute Auto 2.45 K/uL (0.90-2.90); Mean Corpuscular HGB Conc 33 gm/dL (32-36); Mean Corpuscular Hemoglobin 28 pg (26-34); Mean Corpuscular Volume 84 fL (80-100); RDW Coefficient of Variation % 12.5 % (11.5-15.5); Red Blood Count* 4.80 m/uL (4.00-5.20); White Blood Count* 6.28 K/uL (4.50-11.00)
[2025-04-12 19:36] LABS: Slide Review Reflex No
[2025-04-12 19:45] LABS: Albumin* 4.4 g/dL (3.3-5.0); Chloride* 101 mmol/L (96-114); Potassium* 4.0 mmol/L (3.6-5.1); Sodium* 138 mmol/L (135-149)
[2025-04-12 19:47] LABS: Blood Urea Nitrogen* 22 mg/dL (7-30); Creatinine* 0.8 mg/dL (0.5-1.5); Est. Creatinine Clearance* 44.02; Estimated Glomerular Filt Rate 83 ml/min
[2025-04-12 19:48] LABS: Alanine Aminotransferase* 61 U/L (4-35); Alkaline Phosphatase* 89 U/L (40-150); Anion Gap 7 mEq/L (7-15); Aspartate Amino Transferase* 39 U/L (12-35); Bilirubin Total* 0.3 mg/dL (0.1-1.5); Calcium* 9.1 mg/dL (8.4-10.6); Carbon Dioxide* 30 mmol/L (20-32); Glucose* 140 mg/dL (60-115); Total Protein* 7.4 g/dL (6.0-8.3)
--- NOTE | 2025-04-12 19:58 | ED_ITS ---
HPI - Abdominal Pain General Date Seen: 04/12/25 Chief Complaint: Abdominal Pain Stated Complaint: R side pain Time Seen by Provider: 04/12/25 19:00 Source: patient Mode of arrival: ambulatory Limitations: no limitations History of Present Illness HPI narrative: Patient is a 64-year-old female presenting to emergency department right lower quadrant and right lower flank pain. She states for the past week she has been having this intermittent pain that seems mostly to be in the right lower quadrant but does radiate her right flank. Over the past few days is been more constant with occasional sharp episodes. She has difficulty explaining the description with the pain and can just say it is constant. States currently the pain is a 4 to 5/10 and is tolerable. Has had some nausea earlier but no current nausea. Denies having symptoms like this before. Has had previous hysterectomy but no other abdominal surgeries. States she had 3 bowel movements today that were normal. Has no history of a small-bowel obstruction but does states she feels like her abdomen is mildly distended. Has not had any fevers but does occasionally feel flushed similar to when she has gone through menopause. Denies chest pain, shortness of breath, dysuria, headache, vision changes, weakness, numbness, lightheadedness, dizziness. No other concerns noted at this time. Related Data Home Medications ?Medication ?Instructions ?Recorded ?Confirmed No Known Home Medications 08/16/2411/01 Allergies Allergy/AdvReac Type Severity Reaction Status Date / Time ciprofloxacin Allergy Gastrointestinal Verified 04/12/25 19:06 Upset cetirizine AdvReac sedation Verified 04/12/25 19:06 Review of Systems Status of ROS Reports: 10 or more systems reviewed and unremarkable except as noted in History and below [facility] Medical History MRELY (obstructive sleep apnea) ?G47.33 - Obstructive sleep apnea (adult) (pediatric) (ICD-10) OAB (overactive bladder) ?N32.81 - Overactive bladder (ICD-10) Low vitamin D level ?R79.89 - Other specified abnormal findings of blood chemistry (ICD-10) IBS (irritable bowel syndrome) ?K58.9 - Irritable bowel syndrome, unspecified (ICD-10) Contact dermatitis ?L25.9 - Unspecified contact dermatitis, unspecified cause (ICD-10) Anxiety ?F41.9 - Anxiety disorder, unspecified (ICD-10) Actinic cheilitis ?L56.8 - Other specified acute skin changes due to ultraviolet radiation (ICD-10) Surgical History History of hysterectomy (11/17/24) ?Z90.710 - Acquired absence of both cervix and uterus (ICD-10) S/P abdominoplasty ?Z98.890 - Other specified postprocedural states (ICD-10) History of arthroscopy of right shoulder (11/14/98) ?Z98.890 - Other specified postprocedural states (ICD-10) S/P foot surgery, left (04/18/92) ?Z98.890 - Other specified postprocedural states (ICD-10) History of tonsillectomy ?Z90.89 - Acquired absence of other organs (ICD-10) Family History Mother Diabetes Father Diabetes Sister Diabetes Uterine cancer Rectal cancer Skin cancer Social History Narrative: former smoker-1993 Smoking Status: Former smoker What tobacco products do you use: cigarettes Smoking quit date/years: >15 years ago Do you use any of these nicotine containing products: None Second hand tobacco smoke exposure: No How often do you have a drink containing alcohol: never AUDIT-C Alcohol total score: 0 Non-prescribed substance use: denies use service: No Exam Narrative: Exam Narrative: Const: Well-nourished, Well-developed, in mild distress Eyes: PERRL, no conjunctival injection, and symmetrical lids HENT: Atraumatic external nose and ears. Moist mucous membranes. Neck: Symmetric, trachea midline, No thyromegaly. CVS: RRR, No murmurs or gallops. Peripheral pulses 2+ and equal in all extremities RESP: Unlabored respiratory effort. Clear to auscultation bilaterally. GI: Mild right lower quadrant tenderness, Nondistended, No rebound or guarding. No CVA tenderness MSK:Extremities w/o deformity, Normal Active ROM Skin: Warm, Dry. No rashes or lesions. Neuro: Normal Muscle tone, No focal neurological deficits. Psych: Awake, Alert, & Oriented x3. Appropriate mood and affect. Const: Vital Signs, click to edit/add: Vital Signs - 24 hr 04/12/25 19:02 Temperature 97.8 F Pulse Rate [Pulse Oximeter] 75 Respiratory Rate 18 Blood Pressure [Ri ght Upper Arm] 138/89 Pulse Oximetry 97 Oxygen Delivery Me thod Room Air Course Vital Signs Vital signs: Initial Vital Signs Temperature 97.8 F 04/12/25 19:02 Temperature Source Temporal Artery Scan 04/12/25 19:02 Pulse Rate 75 04/12/25 19:02 Respiratory Rate 18 04/12/25 19:02 Blood Pressure 138/89 04/12/25 19:02 Blood Pressure Mean 105 04/12/25 19:02 Blood Pressure Position Sitting 04/12/25 19:02 Pulse Oximetry 97 04/12/25 19:02 Oxygen Delivery Method Room Air 04/12/25 19:02 Vital Signs Temperature 97.8 F 04/12/25 19:02 Pulse Rate 75 04/12/25 19:02 Respiratory Rate 18 04/12/25 19:02 Blood Pressure 138/89 04/12/25 19:02 Pulse Oximetry 97 04/12/25 19:02 Oxygen Delivery Method Room Air 04/12/25 19:02 Temperature 97.8 F 04/12/25 19:02 Pulse Rate 75 04/12/25 19:02 Respiratory Rate 18 04/12/25 19:02 Blood Pressure 138/89 04/12/25 19:02 Pulse Oximetry 97 04/12/25 19:02 Oxygen Delivery Method Room Air 04/12/25 19:02 MDM - Abdominal Pain MDM Narrative Medical decision making narrative: Patient is 64-year-old female presenting for right lower quadrant abdominal pain and right low flank pain. Differential at this time includes appendicitis, nephrolithiasis. Seems unlikely to be an SBO as she has had multiple bowel movements today but is on the differential due to the previous surgeries. Due to location gallbladder/liver disease, pancreatitis, diverticulitis seem less likely. Will do a CT scan for better evaluation. Also CBC, CMP, lipase, urinalysis. Patient does not want anything for pain or nausea at this time. Lab work shows no acute concerning abnormalities. He does have some very mildly elevated liver enzymes. Likely from dehydration as she does not drink much today due to her symptoms. CT scan returned and reviewed by myself and the radiologist showing a likely 2 mm obstructing stone the right distal ureter causing mild right-sided hydroureteronephrosis. This is consistent with the patient's pain. I spoke to her about the results and offered her Toradol for pain which she accepted and Zofran for nausea which she declined. Toradol prescribed via instymeds Lab Data Labs: Lab Results 04/12/25 04/12/25 Range/Units 19:18 19:31 WBC 6.28 (4.50-11.00) K/uL RBC 4.80 (4.00-5.20) m/uL Hgb 13.5 (12.0-16.0) gm/dL Hct 40.5 (33.0-51.0) % MCV 84 (80-100) fL MCH 28 (26-34) pg MCHC 33 (32-36) gm/dL RDW Coeff of Erika 12.5 (11.5-15.5) % Plt Count 306 (140-440) K/uL Neut % (Auto) 47.0 (42.0-72.0) % Lymph % (Auto) 39.0 (20-44) % [place] % (Auto) 10.0 (0.0-11.0) % Eos % (Auto) 3.5 (0.0-7.0) % Baso % (Auto) 0.3 (0.0-3.0) % Neut # (Auto) 2.95 (1.7-7.0) K/uL Lymph # (Auto) 2.45 (0.90-2.90) K/uL [place] # (Auto) 0.60 (0.00-0.90) K/UL Eos # (Auto) 0.22 (0.00-0.50) K/uL Baso # (Auto) 0.02 (0.00-0.30) K/uL Abs Immat Gran (auto) 0.01 (0.00-0.30) K/uL Imm/Tot Granulo (auto) 0.2 % Sodium 138 (135-149) mmol/L Potassium 4.0 (3.6-5.1) mmol/L Chloride 101 (96-114) mmol/L Carbon Dioxide 30 (20-32) mmol/L Anion Gap 7 (7-15) mEq/L BUN 22 (7-30) mg/dL Creatinine 0.8 (0.5-1.5) mg/dL Estimated Creat Clear 44.02 Estimated GFR 83 ml/min Glucose 140 H (60-115) mg/dL Calcium 9.1 (8.4-10.6) mg/dL Total Bilirubin 0.3 (0.1-1.5) mg/dL AST 39 H (12-35) U/L ALT 61 H (4-35) U/L Alkaline Phosphatase 89 (40-150) U/L Total Protein 7.4 (6.0-8.3) g/dL Albumin 4.4 (3.3-5.0) g/dL Lipase 146 (23-300) U/L Urine Color Yellow (Yellow) Urine Appearance Clear (Clear) Urine pH 6.5 (5.0-8.5) Ur Specific [place] 1.010 (1.000-1.030) Urine Protein Negative (Negative) Urine Glucose (UA) Negative (Negative) Urine Ketones Negative (Negative) Urine Blood Trace-lysed A (Negative) Urine Nitrite Negative (Negative) Urine Bilirubin Negative (Negative) Urine Urobilinogen 0.2 (0.2-1.0) Ur Leukocyte Esterase Negative (Negative) Urine RBC 0-2 (0-2) Urine WBC 0-2 (0-5) Ur Squamous Epith Cells Few (None-Few) Urine Bacteria None (None) Imaging Data CT scan abdomen pelvis: Attestation: I have reviewed the pertinent imaging results. Radiologist's impression: 1. Suspected 2 millimeter obstructing stone in the distal right ureter causing mild right-sided hydroureteronephrosis. 2. Additional incidental findings as detailed above. Please note that all CT scans at this facility use dose modulation, iterative reconstruction, and/or weight-based dosing when appropriate to reduce radiation dose to as low as reasonably achievable. Dictated by Laz Bates MD @ 04/12/2025 8:38:57 PM Discharge Plan Discharge Clinical Impression: Urolithiasis Qualifiers: Urinary calculus location: ureter Qualified Code(s): N20.1 - Calculus of ureter Patient Disposition: Home, Self-Care Condition: Stable Instructions: How to Strain Your Urine (ED) Additional Instructions: You have a small kidney stone that is causing your pain. This should pass on its own. When using the Toradol do not take other NSAIDs, for example naproxen or ibuprofen. You can use Tylenol though as it is a different class of drugs. You can pick the Toradol from instymeds. Use it as needed for pain. Return to emergency department for new or worsening symptoms. I do recommend following up with the primary care provider for the kidney stone and your mildly elevated liver enzymes Prescriptions: No Action No Known Home Medications Follow Up/Referrals: Stacie Turner PA-C [Primary Care Provider, Family Practice] Stand Alone Forms: [place] Info Instructions
[2025-04-12 21:09] VITALS: BP 125/78; PULSE 70; RESP 18; TEMP 36.6; O2SAT 97
== END 2025-04-12 21:05 | disposition home or self-care (01) ==
PROVIDERS: Emergency Provider Student in an Organized Health Care Education/Training Program; PCP Physician Assistant Medical
DX: N20.1 Calculus of ureter (principal)
CPT/HCPCS: 36415; 74177; 80053; 81001; 82565; 83690; 85025; 99284; Q9967